=== PATIENT | male | born 1960 | race Caucasian/White ===

== ENCOUNTER 2020-04-02 12:51 | Outpatient (REF) | payer BC, SELFPAY | END 2020-04-02 12:52 | disposition home or self-care (01) | LOC: HO.WFDLDS 12:51 | PROVIDERS: Visit Provider Internal Medicine | DX: Z20.828 Contact with and (suspected) exposure to other viral communicable diseases (principal) | CPT/HCPCS: 36415; U0003 ==

== ENCOUNTER 2021-02-06 08:00 | Outpatient (RCR) | payer BC, SELFPAY | END 2021-02-26 13:00 | disposition home or self-care (01) | LOC: HO.PT 08:00 | PROVIDERS: PCP Internal Medicine; Visit Provider Urology | DX: N50.82 Scrotal pain (principal); T81.9XXD Unspecified complication of procedure, subsequent encounter; Z98.52 Vasectomy status | CPT/HCPCS: 97012; 97033; 97110; 97112; 97140; 97162; 97530 ==